=== PATIENT | male | born 1985 | race Caucasian/White ===

== ENCOUNTER 2016-12-29 18:04 | Emergency (ER) | payer BC ==
[2016-12-29 18:07] VITALS: BP 143/77; PULSE 87; RESP 18; TEMP 98.2; O2SAT 96
[2016-12-29] MEDS ORDERED: TDAP ADULT 0.5 ML INJ (BOOSTRIX) IM ONE (18:26)
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
== END 2016-12-29 19:01 | disposition home or self-care (01) ==
DX: S50.812A Abrasion of left forearm, initial encounter (principal); S80.212A Abrasion, left knee, initial encounter; V18.0XXA Pedal cycle driver injured in noncollision transport accident in nontraffic accident, initial encounter; Y92.410 Unspecified street and highway as the place of occurrence of the external cause; Y99.8 Other external cause status; Y93.55 Activity, bike riding; Z23 Encounter for immunization